=== PATIENT | male | born 1965 | race Caucasian/White ===

== ENCOUNTER 2017-04-29 22:09 | Observation (INO) | payer OTHER ==
[~2017-04-29] VITALS: Ht 182.9 cm; Wt 85.7 kg
[2017-04-29 22:44] VITALS: BP 118/77; PULSE 96; RESP 20; O2SAT 98
--- NOTE | 2017-04-29 23:41 | ED.REPORT ---
HPI-Trauma Multiple Date of Service Apr 29, 2017 ED Provider: Leighton Naidu MD A 51 year old male with no pertinent medical history presents to the ED complaining of back and rib pain. The pt was riding a 15 hand horse this evening when he fell, landing on his right side with his arm tucked. The pt denies head trauma or loss of consciousness, but admits to right-sided low back pain, right rib pain and an abrasion on his right arm. He also noticed "popping " in his low back when he tried to lay flat, and became diaphoretic at that point. Nursing Notes Stated Complaint: FALL OFF HORSE 15 HANDS HIGH-HURT BACK Chief Complaint: Back Pain or Injury Nursing Notes Reviewed: Yes Allergies: Coded Allergies: No Known Allergies (Unverified , 04/29/17) General Time Seen by Provider: 23:44 Chief Complaint Other (Rib/back pain) Hx Obtained From: Patient Arrived By: Walk-in Onset Occurred: 1 - 4 hours ago Symptom Duration: Since onset Recent Healthcare: No recent doctor visit, No recent hospitalization Similar Sx Previous: No Past Medical History Past Medical History none reported Past Surgical History none reported Smoking History Unknown if Ever Smoker Ambulatory Status Independent Review of Systems Respiratory: Denies: Non-productive cough, Shortness of breath Cardiovascular: Reports: Chest pain (rib pain) GI: Denies: Abdominal pain, Nausea, Vomiting Musculoskeletal: Reports: Back pain, Extremity pain, Denies: Neck pain Skin: Reports Diaphoresis, Denies Rash Complete sys rev & neg: except as marked. Physical Exam Initial Vital Signs Vital Signs (First) Date Time Temp Pulse Resp B/P Pulse Ox O2 Delivery O2 Flow Rate FiO2 04/29/17 22:44 36.4 96 20 118/77 98 Initial VS: Reviewed General/Constitutional: Awake, Alert Head / Eyes: Atraumatic, Normocephalic, PERRL, EOMI Neck: Atraumatic, Supple, Full range of motion Respiratory / Chest: Breath sounds = bilat, No respiratory distress diminished breath sounds on the right tender right ribs Cardiovascular: Heart rate NL, Regular rhythm, Heart sounds NL Abdomen: Soft, Non-tender Back: Full range of motion low back mildly tender Neurologic: Oriented X3, Speech NL, No motor deficits, No sensory deficits ENT: Atraumatic, Airway patent, Mucous membranes moist Upper Extremity / MS: Full range of motion, Neurologic intact, Vascular intact 7 cm x 4 cm abrasion on the extensor surface of the right elbow to the forearm Lower Extremity / Pelvis / MS: Atraumatic, Full range of motion Skin: Color NL, No rash, Warm, Dry Interpretation & Diagnostics Lumbar Spine X-Ray: no acute findings Rib X-Ray: small pneumothorax small hemothorax multiple rib fractures on right CT Chest/Abdomen/Pelvis: IMPRESSION: Small right hemopneumothorax. Pneumothorax measures approximately 1.4 cm in depth at the anterior costophrenic angle. Right-sided rib fractures. Posterior inferior perihepatic small focus of fluid noted, 63.2, compatible with subtle hepatic capsular injury. No active extravasation. Right posterior lower back subcutaneous fat hemorrhagic contusion. Lab Results Interpretation Result Diagram: 04/30/17 0007 04/30/17 0007 Test 04/30/17 00:07 04/30/17 00:09 04/30/17 00:39 White Blood Count 13.3th/mm3 (3.8-10.1) Red Blood Count 4.58mil/mm3 (4.40-5.80) Hemoglobin 14.0g/dL (13.8-17.2) Hematocrit 40.8% (41.0-50.0) Mean Corpuscular Volume 89.1fL (81-100) Mean Corpuscular Hemoglobin 30.6pg (27.0-35.0) Mean Corpuscular Hemoglobin Concent 34.3% (32.0-37.0) Red Cell Distribution Width 12.5% (12.3-15.4) Platelet Count 269bil/L (150-400) Neutrophils (%) (Auto) 89.3% (40-74) Lymphocytes (%) (Auto) 4.5% (14-46) Monocytes (%) (Auto) 5.6% (4-12) Eosinophils (%) (Auto) 0.1% (0-5) Basophils (%) (Auto) 0.2% (0-3) Sodium Level 140mEq/L (134-144) Potassium Level 4.2mEq/L (3.5-5.2) Chloride Level 101mEq/L (97-108) Carbon Dioxide Level 24mmol/L (18-29) Blood Urea Nitrogen 18mg/dL (6-24) Creatinine 0.95mg/dL (0.76-1.27) Estimat Glomerular Filtration Rate 89mL/min (>59) Glucose Level 156mg/dL (60-99) Calcium Level 9.6mg/dL (8.5-10.1) Magnesium Level 2.0mg/dL (1.6-2.6) Total Bilirubin 0.4mg/dL (0.0-1.2) Aspartate Amino Transf (AST/SGOT) 24U/L (0-50) Alanine Aminotransferase (ALT/SGPT) 20U/L (0-44) Alkaline Phosphatase 61U/L (25-150) Troponin T 0.010ug/L (0.0-0.011) Total Protein 7.1g/dL (6.4-8.4) Albumin 4.7g/dL (3.4-5.0) Lipase 21U/L (13-60) Hold [place] Top Tube Received (Received) Prothrombin Time 11.0sec (8.1-12.5) Prothromb Time International Ratio 1.03ratio Activated Partial Thromboplast Time 20.3sec (22.8-33.0) ECG Interpretation ECG Interpretation: normal sinus rhythm with a rate of 95 Time: 01:06 Interpreted by: ED physician Re-Eval/Medical Decision Med Decision/Clinical Course Med Decision/Clinical Course: 51-year-old suffered a fall from horse, with rib fractures apparent on plain films and a pneumothorax also. CT confirms a small pneumothorax, small hemothorax, and multiple rib fractures. There is also a small subcapsular bruise in the liver. Admitted to surgical service for following his pneumothorax insuring stability. Source of Hx: Old records Re-Evaluation/Progress : Time of Eval: 01:43 Patient Status: Condition improved Re-Evaluation/Progress Note: Pt rechecked, who is resting. The diagnosis and plan for admission are discussed. The pt understands and agrees with the plan. All questions are addressed at this time. Consultation #1: Referral / Consult Name: Minor Walter MD Consulted With: Surgeon Call Returned at: 01:13 Maitre D': Agrees with eval, Agrees with plan, Accepts admit Note: Spoke with Dr. Walter, surgeon, regarding pt's case. Dr. Walter agrees with the evaluation and agrees to admit the pt for surgery. Consultation #2: Referral / Consult Name: Minor Walter MD Consulted With: Surgeon Call Returned at: 01:41 Maitre D': Agrees with eval, Agrees with plan Note: Updated Dr. Walter on pt's CT results. Plan for admission is further discussed. Counseled Regarding: Diagnosis, Lab results, Need for admission Discharge & Departure Impression: Primary Impression: Pneumothorax Pneumothorax type: unspecified pneumothorax Qualified Code: J93.9 - Pneumothorax, unspecified Additional Impressions: Ribs, multiple fractures Encounter type: initial encounter Fracture type: closed Laterality: right Qualified Code: S22.41XA - Multiple fractures of ribs, right side, initial encounter for closed fracture Status post fall Hemothorax with pneumothorax, traumatic Encounter type: initial encounter Qualified Code: S27.2XXA - Traumatic hemopneumothorax, initial encounter Subcapsular hematoma of liver Disposition: ADMITTED TO HOSPITAL Discharge Condition All VS Reviewed: Yes Condition: Stable Referrals: Kailash Casiano MD (PCP) Scribe Attestation Portions of this note were transcribed by Lisa Pineda. I, Dr. Naidu personally performed the history, physical exam and medical decision-making; I reviewed and confirmed the accuracy of the information in the transcribed note. copies to: Kailash Casiano MD, Christopher W MD Apr 29, 2017 23:41 LISA PINEDA Apr 29, 2017 23:52
[2017-04-29] MEDS ORDERED: 0.9% Sodium Chloride 1,000 ML IV ONE (23:49)
[2017-04-29] MEDS ORDERED: Ondansetron 2 mg/mL 2 mL Inj IVPUSH ONE (23:50)
[2017-04-30] VITALS (9 sets, daily range): BP systolic 113–142; BP diastolic 66–85; PULSE 66–102; RESP 16–18; O2SAT 93–99
[2017-04-30] MEDS: HYDROmorphone 0.5 mg/0.5 mL iSecure Syringe IVPUSH PRN ×2 (00:08→02:14)
[2017-04-30 00:12] LABS: BASOPHILS % (AUTO) 0.2 % (0-3); EOSINOPHILS % (AUTO) 0.1 % (0-5); MONOCYTES % (AUTO) 5.6 % (4-12); Mean Corpuscular Hemoglobin 30.6 pg (27.0-35.0); Mean Corpuscular Volume 89.1 fL (81-100); NEUTROPHILS % (AUTO) 89.3 % (40-74); Platelet Count 269 bil/L (150-400)
[2017-04-30 00:42] LABS: TROPONIN T 0.01 ug/L (0.0-0.011)
[2017-04-30 01:14] LABS: INR 1.03 ratio
[2017-04-30] MEDS ORDERED: Ketorolac 15 mg/mL Inj IVPUSH PRN (01:50)
[2017-04-30] MEDS ORDERED: Ondansetron 2 mg/mL 2 mL Inj IVPUSH PRN (01:50)
[2017-04-30] MEDS ORDERED: HYDROmorphone PCA 0.2 mg/mL 30 mL Inj IV PRN (01:50)
[2017-04-30] MEDS ORDERED: MetoCLOpramide 5 mg/mL 2 mL Inj IVPUSH PRN (01:50)
[2017-04-30] MEDS: Lactated Ringer's 1,000 ML IV SCH ×2 (03:41→11:48)
--- NOTE | 2017-04-30 06:13 | NUR ---
Admit Arrived to [facility] floor from ED at 0320 for multiple right rib fx's due to falling off horse yesterday morning. On arrival, pt had c/o pain 6 to 7 out of 10 to right side and front head. Pt denies hitting head on fall/impact, states "I fell on my right side." There is a small closed scab on his right lateral knee, abrasions/scratches to lower lateral back/side' -drainage, as well as an open abrasion on right lateral elbow that was weeping sero-sanguinous fluid. Placed tefla and kerlix to right arm abrasion. Pt is on RELIEF CAPTAIN Dilaudid, standard settings, and received one dose of 15mg IV Toradol on arrival. Pt states "my headache is gone now" post Toradol administration.
--- NOTE | 2017-04-30 08:00 | DRSVH ---
PROCEDURE: CT CHEST, ABDOMEN AND PELVIS WITH CONTRAST ([id number]) INDICATIONS: fall from horse TECHNIQUE: After the administration of intravenous contrast, 5 mm thick sections acquired from the lung apices t o the symphysis. 5 mm thick coronal and sagittal reformats were acquired. Additional 7 mm thick cor onal maximum intensity projection (MIP) reformats acquired through the lungs. Optional 10-minute del ayed imaging may be performed from the kidneys to the bladder. For radiation dose reduction, the fol lowing was used: automated exposure control, adjustment of mA and/or kV according to patient size. COMPARISON: None. FINDINGS: Image quality: Excellent. CHEST: Lungs: Groundglass pulmonary opacities in the dependent lungs right greater than left consistent with contusion superimposed on atelectasis. Small right sided pneumothorax. Central airways are patent. T race pneumothorax. Mediastinum: No mediastinal hematomas. Heart size is normal. No pericardial effusion. Thoracic ao rta and pulmonary arteries demonstrate normal size and enhancement. No mediastinal or hilar adenopat hy. Esophagus is normal in caliber. No hiatal hernia. Chest wall: The right 6th-12th ribs are fractured posteriorly. Additional posterior lateral right 8th rib mildly displaced fracture. Additional nondisplaced posterior lateral right 11th rib fracture. ABDOMEN: Solid organs: Tiny area of fluid posterior to the liver measuring 1.5 CM most consistent with a small area of capsular injury. Radiographically normal spleen.. Gallbladder is present. Biliary system i s non-dilated. Pancreas enhances normally, without transection. No adrenal hematomas. Both kidneys enhance normally, without hydronephrosis or lacerations. Peritoneum and bowel: No free fluid or air. Unenhanced bowel loops demonstrate normal wall thicknes s and caliber. Nodes and vessels: No retroperitoneal or mesenteric adenopathy. Aorta and inferior vena cava are no rmal in size and enhancement. Miscellaneous: No ventral hernias. PELVIS: Genitourinary: Bladder wall thickness is normal. Miscellaneous: No inguinal hernias or adenopathy. Posterior right flank cutaneous hematoma. Bones: Pelvic ring and hip joints appear intact. No vertebral compression fractures. Chronic appea ring areas of calcification about the left greater trochanter consistent sequela of previous trauma. IMPRESSION: 1. Small right-sided pneumothorax caused by posterior right 6th-12th rib fractures with additional la teral right 8th and 11th rib fractures. Findings do not meet radiographic criteria for a flail chest. Trace hemothorax. 2. Tiny area of fluid posterior to the liver consistent with very low-grade hepatic injury. No active extravasation. 3. There are no discrepancies with the preliminary report. Dictated by: Easton Rabago M.D. on 04/30/2017 at 7:47 Approved by: Easton Rabago M.D. on 04/30/2017 at 7:58
--- NOTE | 2017-04-30 08:13 | DRSVH ---
PROCEDURE: X-RAY LUMBAR SPINE, 2 OR 3 VIEW INDICATIONS: fall TECHNIQUE: 3 views of the lumbar spine were acquired. COMPARISON: None. FINDINGS: Bones: 5 [id number] vertebrae are present. There is normal bony alignment. No vertebral body compression fractures. No suspicious bony lesions. Multilevel degenerative change appropriate for t he patient's age. Facet joint hypertrophy. Soft tissues: Overlying bowel gas pattern is normal. No suspicious soft tissue calcifications. IMPRESSION: There are no discrepancies with the preliminary report. Dictated by: Easton Rabago M.D. on 04/30/2017 at 8:11 Approved by: Easton Rabago M.D. on 04/30/2017 at 8:11
--- NOTE | 2017-04-30 08:21 | DRSVH ---
PROCEDURE: X-RAY RIGHT RIBS, TWO VIEWS ([id number]) INDICATIONS: fall TECHNIQUE: 4 views of the right ribs were acquired. COMPARISON: None. FINDINGS: Surgical changes and devices: None. Bones and chest wall: Posterior right rib fractures affecting the 7th, 8th and 10th ribs. Further kno wn right rib fractures are below the resolution of this study. Lungs and pleura: The visualized lung appears clear. No pleural effusions. Small right apical pneum othorax. IMPRESSION: 1. Inferior posterior right rib fractures better seen on the chest CT of the same date where they wer e noted to affect the right 6th-12th ribs. 2. Small right apical pneumothorax. Dictated by: Easton Rabago M.D. on 04/30/2017 at 8:16 Approved by: Easton Rabago M.D. on 04/30/2017 at 8:19
[2017-04-30 08:37] LABS: BASOPHILS % (AUTO) 0.2 % (0-3); EOSINOPHILS % (AUTO) 0.7 % (0-5); MONOCYTES % (AUTO) 8.2 % (4-12); Mean Corpuscular Hemoglobin 30.3 pg (27.0-35.0); NEUTROPHILS % (AUTO) 75.7 % (40-74); Platelet Count 226 bil/L (150-400)
--- NOTE | 2017-04-30 08:55 | NUR ---
Social Work- Screening/ Readiness for D/C Data: EMR reviewed. Pt is a 51 year old male admitted for hemothorax, rib fractures after falling off a horse. Pt's insurance is [employer]. pt's PCP is Kailash Casiano MD. Pt's NOK is Jennifer Lewis, , . SW met with pt at bedside regarding d/c planning, SW role explained. Pt alert and oriented x3. Pt resides in [place] with his and children. 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 Pt has no DPOA on file, declined information at bedside. Pt's son will be available to assist pt at home as needed until pt's returns from vacation. Pt's son will transport him home via POV when medically ready. No d/c needs anticipated. SW wrote phone number and plan on whiteboard. SW will continue to follow for d/c planning needs. Assessment: Pt who is independent at baseline. Plan: Pt's son will transport him home via POV when medically ready. No d/c needs anticipated. SW will continue to follow for d/c planning needs. Taniya Griffin, POPCORN MACHINE OPERATOR
[2017-04-30] MEDS ORDERED: OXYC-530 PO (09:40)
--- NOTE | 2017-04-30 09:40 | PCM.DISURG ---
Surgical Discharge Instruction Date of Service Apr 30, 2017 Dates of Hospitalization Date of Hospital Admission Apr 30, 2017 at 02:36 Providers Admitting Physician: Minor Walter MD Primary Care Physician: Kailash Casiano MD Attending Physician: Minor Walter MD Discharge Diagnosis Discharge Diagnosis fall from horse, right sided rib fractures 2-12, small pneumothorax Diet Discharge Diet: No restrictions Activity Discharge Activity-General: Try not to overdue, No driving while taking narcotic Dressing and Incisional Care Hygiene: May shower Additional Instructions Discharge Instructions return to work as tolerated, be aware that rib fractures may decrease reaction time and ability to hazardous work conditions such as climbing ladders, etc Follow Up Plan Follow Up Plan as needed with [facility] General Surgery Clinic Minor Walter MD Apr 30, 2017 09:40
--- NOTE | 2017-04-30 11:28 | NUR ---
Social Work- Discharge Data: EMR reviewed. Pt is a 51 year old male admitted for hemothorax, rib fractures after falling off a horse. Pt is medically stable for discharge, discharge orders are active. Pt's son will transport him home via POV when medically ready. No d/c needs anticipated. Assessment: Pt who is independent at baseline. Plan: Pt's son will transport him home via POV when medically ready. No d/c needs anticipated. SUSHMA Louis
--- NOTE | 2017-04-30 14:24 | DIS ---
[address] [address] DISCHARGE SUMMARY PATIENT: KATIE BRYANT : 1965 MR#: [id number] ADMIT: 04/30/2017 JOB ID: [id number] DIS: 04/30/2017 DISCHARGE DIAGNOSES: 1. Fall from a horse. 2. Right rib fractures. 3. Right pneumothorax. 4. Intraperitoneal blood. HOSPITAL COURSE: A 51-year-old man who fell from his horse, came to the emergency department later on and had injuries identified of rib fractures, trace right pneumothorax and a minimal amount of blood in the right side of the abdominal cavity. He was admitted overnight per Dr. Naidu in the emergency department. He was discharged with his pain control adequate and followup with [facility] General Surgery. He is to do incentive spirometer 10 times every 1 hour p.r.n. He will be discharged with oxycodone p.o.
--- NOTE | 2017-04-30 14:40 | HP ---
[address] [address] HISTORY AND PHYSICAL PATIENT: KATIE BRYANT : 1965 MR#: [id number] ADMIT: 04/30/2017 JOB ID: [id number] DATE OF SERVICE: 04/30/2017 CHIEF COMPLAINT/IDENTIFICATION: A 61-year-old trauma patient admitted to the General Surgery service following a fall from a horse. HISTORY OF PRESENT ILLNESS: The patient was riding his horse yesterday evening, fell off of it, landing on his right side and back. He thought he was feeling well enough to be at home until he began having back spasms and came to our emergency department, where his workup included rib x-rays, L-spine x-rays, abdominal pelvis CT, and some lab work. He was admitted at Dr. Naidu' request. PAST MEDICAL HISTORY: Negative. MEDICATIONS: None. ALLERGIES: None. 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 Negative daily alcohol. Negative tobacco. FAMILY HISTORY: Per Dr. Naidu' evaluation. REVIEW OF SYSTEMS: Per Dr. Naidu' evaluation. PHYSICAL EXAMINATION: The patient is seen this morning in his hospital bed. He is afebrile. His pulse is between 66 and 88. Blood pressure is within normal limits. Room air saturations 97% to 98%. He is neurologically intact. His sclerae are clear. His neck is supple. He has tenderness on the right chest wall but bilateral equal breath sounds. His abdomen is soft and nontender. Rectal is not performed. LABORATORY DATA: His hematocrit is 36, was 40 last night. His white count is normal; it was mildly elevated last night. His platelet count remains stable at 226. Chemistries last night were unremarkable except for mild elevation of glucose at 156. Lipase is normal. IMAGING: I have reviewed his images as well as the reports. Rib x-rays demonstrate rib fractures, small right apical pneumothorax. By the report, I do not really appreciate much for pneumothorax on the plain films. His lumbar spine films are negative. Chest, abdomen and pelvis CT is reviewed as well as review of the reports. He has multiple rib fractures on the right. He does have a trace amount of fluid by the right liver that may represent minimal liver injury or just as likely represents abdominal wall injury. His pneumothorax on the right is minimal. IMPRESSION AND PLAN: Doing well status post fall, with primary issue being his rib fractures. Pneumothorax seems to be resolved to my reading on his chest x-ray. Pain control is not an issue. I think he does not need to be observed any further for ongoing bleeding risk. His pain control is adequate with oral medications and I will send him home later today with incentive spirometer and follow up with the [facility] Surgery Clinic.
--- NOTE | 2017-04-30 17:03 | DRSVH ---
PROCEDURE: X-RAY CHEST, TWO VIEWS ([id number]) INDICATIONS: PTX TECHNIQUE: 2 views of the chest were acquired. COMPARISON: [facility], CR, XR RIBS UNILAT 2VW RT, 04/29/2017, 23:19. [facility] ital, CT, CT CHEST ABD PELVIS W CON, 04/30/2017, 0:07. FINDINGS: Surgical changes and devices: None. Lungs and pleura: Trace right apical pneumothorax present similar to prior CT scan. Bibasilar airspa ce opacities. Mediastinum: Mediastinal contours are normal. Heart size is normal. Bones and chest wall: No suspicious bony abnormalities. Soft tissues appear unremarkable. Multiple right inferior posterior lateral fractures redemonstrated. IMPRESSION: 1. Trace right apical pneumothorax. 2. Bibasilar atelectasis versus aspiration or pneumonia. Correlate clinically. 3. Multiple inferior posterior lateral rib fractures redemonstrated. Dictated by: Anurag DOS SANTOS Interpreted: Veronica Cottrell MD on 04/30/2017 at 10:58 Approved by: Veronica Cottrell M.D. on 04/30/2017 at 17:01
--- NOTE | 2017-05-01 07:39 | NUR ---
Discharge 04/30/17 1400 Pt to discharge to home with his son; A&Ox3, DIVINE, VSS, IV access discontinued, requests no pain meds for pain today. Pt given written and verbal discharge instructions to which he states understanding and instructions of s/s worsening, Care Notes for Rib fx, Oxycodone and Rx in hand for Oxycodone. Pt instructed to f/u with [facility] in 10-[address] Walter provided note for work release to allow pt to work w/out restrictions which pt requested. All personal belongings with pt at time of discharge and amb off unit with RN.
== END 2017-04-30 13:50 | disposition home or self-care (01) ==
LOC: SED 22:09 → OSC 04-30 02:36
PROVIDERS: ADMIT Surgery; ATTEND Surgery
DX: S27.0XXA Traumatic pneumothorax, initial encounter (principal); S22.41XA Multiple fractures of ribs, right side, initial encounter for closed fracture; V80.010A Animal-rider injured by fall from or being thrown from horse in noncollision accident, initial encounter; Y93.52 Activity, horseback riding
CPT/HCPCS: 36415; 71020; 71100; 71260; 72100; 74177; 80053; 83690; 83735; 84484; 85025; 85610; 85730; 86850; 86870; 93005; 96361; 96374; 96375; 96376; 99285; G0378; J1170; J1200; J1885; J2405; J7030; J7120; Q9967